=== PATIENT | female | born 1980 | race Caucasian/White ===

== ENCOUNTER 2020-11-03 02:36 | Emergency (ER) | payer SELFPAY ==
[~2020-11-03] VITALS: Ht 152.4 cm; Wt 73.0 kg
[2020-11-03 03:29] VITALS: BP 120/96
== END 2020-11-03 06:09 | disposition home or self-care (01) ==
LOC: ER 02:36
DX: R05 Cough (principal); R07.89 Other chest pain; R06.02 Shortness of breath; Z20.828 Contact with and (suspected) exposure to other viral communicable diseases
CPT/HCPCS: 87635; 99283; C9803